=== PATIENT | male | born 1995 | race Caucasian/White ===

== ENCOUNTER 2023-10-13 22:59 | Emergency (ER) | payer BC ==
[~2023-10-13] VITALS: Ht 175.3 cm; Wt 68.0 kg
[2023-10-13 23:20] VITALS: BP_SYST 135; PULSE 82; RESP 18; TEMP 98.1; O2SAT 96
[2023-10-13] MEDS: NACL 0.9% 1,000 ML IV ONE (23:51)
[2023-10-13] MEDS: METOCLOPRAMIDE HCL 10 MG/2 ML VIAL IVP ONE (23:55)
[2023-10-13] MEDS ORDERED: METOCLOPRAMIDE HCL 10 MG/2 ML VIAL ONE (23:56)
[2023-10-13] MEDS: KETOROLAC TROMETHAMINE 30 MG VIAL IVP ONE (23:56)
[2023-10-14] MEDS ORDERED: METH-634 PO (00:37)
[2023-10-14] MEDS ORDERED: IBUP-1969 PO (00:37)
[2023-10-14 01:25] VITALS: BP_SYST 111; PULSE 84; RESP 18; TEMP 98.8; O2SAT 97
== END 2023-10-14 00:52 | disposition home or self-care (01) ==
LOC: SED 22:59
DX: G44.209 Tension-type headache, unspecified, not intractable (principal); R11.0 Nausea
CPT/HCPCS: 99284; 96374; 96361; 96375; J1885; J2765; J7030